=== PATIENT | male | born 1960 | race Caucasian/White ===

== ENCOUNTER 2021-10-29 11:26 | Outpatient (REF) | payer MEDICAID, SELFPAY ==
--- NOTE | ~2021-10-29 | XR_ITS ---
EXAMINATION: XR ABDOMEN KUB CLINICAL INDICATION: R30.0 - Dysuria COMPARISON: None TECHNIQUE: AP x2 views of the abdomen. FINDINGS: There is scattered gas in the bowel of normal caliber. No gaseous distention or focal abnormal collections of gas. The lung bases are clear. There are no visible urinary tract calculi. No acute bony abnormality. There is a faint rim calcification right lateral abdomen and beyond the renal fossa likely related to fat necrosis or lipoma right anterior abdominal wall on CT 2019. XR/XR KUB IMPRESSION: 1. No visible urinary tract calculi. 2. Bowel gas unremarkable. Lung bases clear.
== END 2021-10-29 11:27 | disposition home or self-care (01) ==
LOC: HO.XRAY 11:26
PROVIDERS: PCP Internal Medicine; Visit Provider Internal Medicine
DX: R30.0 Dysuria (principal)
CPT/HCPCS: 74018